=== PATIENT | female | born 1990 | race Caucasian/White ===

== ENCOUNTER 2022-01-03 21:35 | Observation (INO) | payer MEDICAID, SELFPAY ==
[2022-01-03 21:36] VITALS: BP 121/91; PULSE 113; RESP 15; TEMP 36.2; O2SAT 98; BMI 18.7
[2022-01-03 21:59] VITALS: BP 128/72; PULSE 88; RESP 14; TEMP 36.4; O2SAT 99
--- NOTE | 2022-01-03 22:01 | EDS_ITS ---
HPI History of Present Illness Chief Complaint: Substance Abuse Narrative Narrative: Patient presents for detoxification from heroin and has had crack cocaine use. She states she has been through detox previously. She denies other significant past medical history. She had bilateral tubal ligation. She last used earlier today. She denies any active withdrawal symptoms currently except for mildly rapid heart rate. She states that she went through rehab previously, but all they did was talk about God and she states she did not learn anything about coping mechanisms. She denies any suicidal ideation. No other symptoms. She states that she desires detoxification. [facility] Medical History Anxiety Depression Ectopic Mood disorder Restless leg Substance abuse Allergy/AdvReac Type Severity Reaction Status Date / Time sulfamethoxazole Allergy Other Verified 01/03/22 21:36 [From Bactrim] trimethoprim [From Bactrim] Allergy Other Verified 01/03/22 21:36 Social History Smoking Status: Current every day smoker tobacco type: cigarettes ROS ROS ED ROS Narrative Constitutional: No fever, no chills. HEENT: No sore throat. No neck pain. No loss of vision. No rhinorrhea. Cardiovascular: No chest pain. No palpitations. No pedal edema. Respiratory: No cough, no shortness of breath. Abdominal: No abdominal pain. No nausea. No vomiting. Genitourinary: No dysuria. No hematuria. Musculoskeletal: No myalgias. No arthralgias. Neurologic: No headaches. No dizziness. No lightheadedness. Skin: No rash. No change in color. Psychiatric: No depression. No anxiety. EXAM Physical Exam Narrative Exam Narrative: Afebrile. Vital signs noted. HEENT: Normocephalic. Atraumatic. PERRL, EOMI. Neck soft and supple. No point tenderness or step off. Cardiovascular: Regular tachycardia, no murmurs, rubs, or gallops appreciated. Respiratory: No tachypnea. Lungs clear to auscultation bilaterally. Gastrointestinal: Abdomen soft, nontender, with normoactive bowel sounds. No rebound or guarding. Neurological: Awake. Alert. Nonfocal, nonlateralizing. Skin: No rash. Normal color. No pallor. Musculoskeletal: No pedal edema. Full range of motion extremities. Const Vital Signs: 01/03/22 21:36 Temperature 97.2 F L Temperature Source Temporal Pulse Rate 113 H Respiratory Rate 15 Blood Pressure 121/91 H Blood Pressure Mean 101 Pulse Ox 98 Oxygen Delivery Method Room Air MDM MDM MDM Narrative Medical decision making narrative: Screening labs were obtained including CBC, C MP, serum , urine for drugs of abuse, and alcohol level. Patient has already been evaluated by the hospitalist. She will be admitted for detox from polysubstances. She is in stable condition. Discharge Plan Dx/Rx/DC Orders Clinical Impression: Heroin addiction, Crack cocaine use, Desire for detoxification Disposition Disposition: Acute Care Hospital [facility]
--- NOTE | 2022-01-03 22:15 | HP.PCM.HOS_ITS ---
HPI - General General Date of Admission: 01/03/22 Date of Service: 01/03/22 Chief Complaint: Detoxification requested. HPI Narrative The patient is a 31 y/o F w/ PMHx: Anxiety and Depression/Mood disorder, RLS, Tobacco use, Polysubstance abuse (Heroin usually snorted, crack usually snorted, both 1/2 gm each daily) who presents to the [facility] ED on 01/03/22 with history of recurrent onset heroine and crack usage, last usage late afternoon/early evening on day of presentation with recommendation to present for detoxification by 180 with whom patient has been following, unfortunately started using again 10/2021. She notes upon presentation congestion, fatigue and agitation, restless legs but no body aches, nausea or abdominal cramping. Work-up in the ED included T 97.2, HR 113, BP 121/91, RR 15, 98% on RA, pending CBC, CMP, UDS with note of prior BL TL. Patient during evaluation is emotional regarding her usage. She notes she did move out of her house with her matthewe and her two daughters because of her usage back with her parents. She notes that her ficartere continues to be clean x 3 years. COUNTS INCLUDE 234 BEDS AT THE [facility] Medical History Anxiety Depression Ectopic Mood disorder Restless leg Substance abuse Allergy/AdvReac Type Severity Reaction Status Date / Time sulfamethoxazole Allergy Other Verified 01/03/22 21:36 [From Bactrim] trimethoprim [From Bactrim] Allergy Other Verified 01/03/22 21:36 Family History (Updated 01/03/22 @ 22:[address] Davida Merida MD) Father Hypertension Heart disease Myocardial infarction other (Patient denies any marked maternal family history including HD, DM, CA.) Surgical History (Updated 01/03/22 @ 22:[address] Davida Merida MD) History of unilateral salpingectomy Hx of tubal ligation S/P tonsillectomy and adenoidectomy Social History household members: family Smoking Status: Current every day smoker tobacco type: cigarettes Smoking packs per day: 0.5 Smoking cigarettes per day: 10.0 alcohol intake: current alcohol intake frequency: a few times a week substance use type: crack/cocaine and opiates ROS ROS Narrative Admission Review of Systems: CONSTITUTIONAL: No weight loss, fever, chills, + weakness or fatigue. HEENT: Eyes: No visual loss, blurred vision, double vision or yellow sclerae. Ears, Nose, Throat: No hearing loss, sneezing, congestion, runny nose or sore throat. SKIN: No rash or itching, lesions, wounds. CARDIOVASCULAR: No chest pain, chest pressure or chest discomfort, palpitations, edema, orthopnea, syncopal events. RESPIRATORY: No shortness of breath, cough or sputum, wheezing, hemoptysis. GASTROINTESTINAL: No anorexia, nausea, vomiting or diarrhea, abdominal pain, melena, BRBPR. GENITOURINARY: No dysuria, frequency, urgency or retention. NEUROLOGICAL: + Restlessness, agitated, No headache, dizziness, syncope, paralysis, ataxia, numbness or tingling in the extremities, focal weakness, change in bowel or bladder control, seizure. MUSCULOSKELETAL: + muscle, back pain, joint pain or stiffness. HEMATOLOGIC: No anemia, bleeding or bruising. LYMPHATICS: No enlarged nodes. No history of splenectomy. PSYCHIATRIC: + history of depression or anxiety. ENDOCRINOLOGIC: No reports of sweating, cold or heat intolerance. No polyuria or polydipsia. ALLERGIES: No history of asthma, hives, eczema or rhinitis. Vital Signs Vital Signs Vital Signs: 01/03/22 21:36 Temperature 97.2 F L Temperature Source Temporal Pulse Rate 113 H Respiratory Rate 15 Blood Pressure 121/91 H Blood Pressure Mean 101 Pulse Ox 98 Oxygen Delivery Method Room Air Weight Weight: 116 lb Body Mass Index (BMI) 18.7 Physical Exam Narrative Physical Examination: General: Awake, alert, oriented x 3 and cooperative, seated upright in the ED bed, appears agitated, restless. Skin: Normal color, normal turgor, no icterus, no cyanosis except various staged picked regions to extremities, no evidence of any infection/erythema. HEENT: AT/NC, EOMI, PERRLA, mildly dry MM, no carotid bruits or JVD noted. Lungs: Diminished, > bases, moderate effort, no rales, ronchi or wheezing. Heart: Mildly tachycardic with regular rhythm; no gallop, rub audible. Abdomen: Soft, NTTP, ND, normal BS, no HSM. Extremities: No cyanosis, clubbing, or edema. See skin. Neurological: Patient awake, alert, oriented as noted, cognitive function intact; pupils equally reactive to light and accommodation, cranial nerves II- XII grossly normal, moving all 4 extremities, no focal deficits, strength preserved, agitated, restless. Psychiatric: Affect appears agitated, tearful at one point during evaluation, notes history of depression or anxiety. Results Lab / Micro Data Result Diagrams: 01/03/22 22:08 01/03/22 22:08 Assessment & Plan Assessment/Plan (1) Desire for detoxification: (2) Crack cocaine use: (3) Heroin addiction: PLAN: The patient is a 31 y/o F w/ PMHx: Anxiety and Depression/Mood disorder, RLS, Tobacco use, Polysubstance abuse (Heroin usually snorted, crack usually snorted, both 1/2 gm each daily) who presents to the [facility] ED on 01/03/22 with history of recurrent onset heroine and crack usage, last usage late afternoon/early evening on day of presentation with recommendation to present for detoxification by 180. #1. Acute Opiate Impending Withdrawal w/ Detoxification request: Will admit to [facility], routine labs obtained and pending upon evaluation, will initiate and continue on protocol with tapering course of Subutex, as needed tylenol, ibuprofen, bowel regimen, gabapentin, Bentyl, Vistaril, methocarbamol, clonidine, PRN nightly trazodone for insomnia, IV fluids, IV antiemetics. Once patient clinically improved and completion of taper nearing will plan consultation with case management for transition to next level of rehabilitation care. #2. Polysubstance Abuse: Patient currently not candidate for hep C treatment currently as needs to be clean, sober x 6 months, documented attendance NA or AA meetings, counseling and ongoing negative drug screens. Once appropriate GI, ID to initiate. HIV, hepatitis panel to assess for co-infection pending. Also per discussion with patient will obtain CT/NG/Trich evaluation. #3. Anxiety and Depression: Not on regimen, encourage continued evaluation, f ollow-up with counseling. #4. Tobacco Abuse: Encouraged cessation, inpatient consultation per RT, NR if desired. #5. RLS: Notes on chronic gabapentin for RLS but not noted on current medication search, will need clarified. #6. DVT Prophylaxis: Low risk, encourage ambulation. Charges/Coding Visit Charges Inpatient E&M: 46334 Init Hosp L2
[2022-01-03 22:22] LABS: Absolute Lymphocyte Count 2.36 X10^3/uL (0.83-4.51); Absolute Neutrophil Count 2.9 X10^3/uL (2.0-7.7); Basophil# 0.04 X10^3/uL; Basophil% 0.7 % (0-1); Eosinophil# 0.16 X10^3/uL; Eosinophils% 2.8 % (0-5); Hemoglobin 15.7 g/dL (12.0-15.0); Lymphocyte # 2.36 X10^3/ul (0.83-4.51); Lymphocyte % 40.8 % (19-41); Mean Corp Hgb Conc 32.7 g/dL (32-36); Mean Corpuscular Hgb 30.4 pg (27.0-32.0); Mean Corpuscular Volume 92.8 fL (81-99); Mean Platelet Vol. 11.2 fl (6.2-12.0); Monocyte# 0.33 X10^3/uL; Monocyte% 5.7 % (0-10); NRBC Flagged by Analyzer 0 % (0-5); Neutrophil # 2.88 X10^3/uL (2.7-7.7); Neutrophil % 49.8 % (47-70); Platelet Count 275 K/mm3 (150-450); RBC Distribution Width CV 12.8 % (11.6-14.6); RBC Distribution Width SD 44.1 fl (35.1-43.9); Red Blood Count 5.17 M/mm3 (4.2-5.4); White Blood Count 5.8 K/mm3 (4.4-11.0)
[2022-01-03 22:31] LABS: Alcohol, Blood (Medical)-Serum < 3.0 mg/dL
[2022-01-03 22:34] LABS: Amphetamine Urine VISTA NEGATIVE (<1000 ng/mL); Barbiturate Urine VISTA NEGATIVE (< 200 ng/mL); Benzodiazepine Urine VISTA NEGATIVE (< 200 ng/mL); Cocaine Urine VISTA POSITIVE (< 300 ng/mL); Ecstacy Urine VISTA NEGATIVE (< 500 ng/mL); Methadone Urine VISTA NEGATIVE (< 300 ng/mL); PCP Urine VISTA NEGATIVE (< 25 ng/mL); THC Urine VISTA POSITIVE (< 50 ng/mL); Vista UDS pH Range 6
[2022-01-03 22:36] LABS: Internal QC Validated? YES +Cl - CLEAR BKGD; Pregnancy, Serum, hCG Quali. NEGATIVE Negative
[2022-01-03 22:37] LABS: ALB/GLOB Ratio 1.1 RATIO (0.9-2.4); AST(SGOT) 7 U/L (15-37); Alanine Aminotransfer ALT/SGPT 22 U/L (13-56); Albumin, Serum 4.1 g/dL (3.2-5.0); Alkaline Phosphatase 72 U/L (45-117); Anion Gap 4 (5-15); BUN 14 mg/dL (7-18); BUN/Creat Ratio 15.1 RATIO (10-20); Calcium,Total 9.8 mg/dL (8.5-10.1); Chloride 105 mmol/L (98-107); Creatinine, Serum 0.93 mg/dL (0.55-1.02); EST Glomerular Filtration Rate 74 mL/min (>60); Est Glom Filt Rate - Afr Amer 90 mL/min (>60); Estimated Creatinine Clearance 72.14 ml/min; Globulin 3.6 g/dL (2.2-4.2); Glucose 113 mg/dL (74-106); Potassium 3.6 mmol/L (3.5-5.1); Protein, Total 7.7 g/dL (6.4-8.2); Sodium Level 140 mmol/L (136-145)
[2022-01-03 23:07] VITALS: BMI 17.7
[2022-01-03 23:07] LABS: HIV - WCH Non-Reactive (Nonreactive)
[2022-01-03 23:30] VITALS: BP 114/79; PULSE 80; RESP 18; TEMP 36.6; O2SAT 100
[2022-01-04] VITALS (8 sets, daily range): BP systolic 99–119; BP diastolic 57–80; PULSE 59–77; RESP 14–16; TEMP 36.3–36.8; O2SAT 96–100
[2022-01-04] MEDS: Lactated Ringers 1,000 ML 125 ML IV (00:12)
[2022-01-04] MEDS: 0.9% Saline Lock 10 ML Syringe IV (00:13)
[2022-01-04] MEDS: Buprenorphine HCl 2 MG TAB.SUBL SL ×3 (01:03→16:35)
[2022-01-04 01:21] LABS: Chlamydia Trachomatis by PCR Negative (Negative); Neisserai gonorrhoeae by PCR Negative (Negative)
[2022-01-04 01:22] LABS: Probe Check PASS; Sample Adequacy Control PASS; Specimen Processing Control PASS
[2022-01-04] MEDS: hydrOXYzine PAM 25 MG Capsule 50 MG PO ×3 (02:06→21:23)
[2022-01-04] MEDS: traZODone 100 MG Tablet PO (02:07)
--- NOTE | 2022-01-04 02:38 | NURSING ---
Addendum entered by Pooja Andrew 01/04/22 03:02: Substance given to this RN by pt double bagged in biohazard bag. Original Note: Upon arrival to floor, pt belongings secured and pt in gown and underwear and bra. While doing admission, pt was in the bathroom for awhile. This RN opened the door and pt quickly turned around and asked what are you doing?. RNs finished admission, pt expressing that she wants to rest now. Following admission, this RN placed IV and went into bathroom to wash hands. When this RN got paper towels out of the dispenser, a piece of foil fell out. When asked about the foil, pt stated, It accidentally fell out of my bra when I was in the bathroom. RN disposed of foil. Following admission, pt went into bathroom multiple times within a short time and was also observed on camera repeatedly bending over by the cabinet and by the bed. Pt asked if she had anything on her and denied multiple times. Pt was crying and said she wants to go outside and smoke and call her sister and then come back in. This RN explained to pt that according to the [facility] program guidelines that she agreed to, she is not allowed to go and smoke and if she left, she would not be able to come back and get readmitted to the program. This information was confirmed by Dr. Merida as well. This RN spoke with Dr. Merida and she advised to give pt some medication to help her relax and sleep. Pt given meds and agreeable to conform to program rules. A bit later, pt was observed on camera going back to the cabinet and then going back to bed. Pt had an emesis bag from previous complaints of nausea and put something in the bag and went into the bathroom. This RN and another RN went into room and spoke with pt when she came back from the bathroom. Pt threw emesis bag on the floor beside the bed. This RN asked pt if she had anything in the bag and pt said yes. Pt began crying and said that she just wanted to do what she had and then get clean because she wasn't ready to when she came to the hospital. Pt willingly gave emesis bag to this RN and pt reported that she had heroin in there. When asked if she had anything else, pt said she had a life science technical officer. Pt searched her gown and bra and underwear and made sure she didn't have anything else left in it. Pt agreeable to giving everything up to fully be able to participate in the [facility] program. Support given to pt regarding detox and this RN told pt to ask if she needs anything to help her go through the detox. Nursing brew house supervisor made aware of situation.
--- NOTE | 2022-01-04 02:39 | NURSING ---
notified by event staff member of finding drug substance with patient. This RN contacted carpet floor layer apprentice in ER to notify dispatch of drugs. This RN contacted Dr Merida and notified pt confessing to drug substance being heroin. Dr Merida advises that as long as patient consents to no more drugs on self she can stay in program. This RN in addition to Loki Andrew RN, Robert RN talked with patient-she admits she wants to detox, states that she has wanted to use it before she came in but her sister wouldn't let her.
--- NOTE | 2022-01-04 03:00 | NURSING ---
[place] [employer] on floor, bag with substance given to this RN by pt given to Officer Amandeep.
[2022-01-04 04:20] LABS: Probe Check PASS; Sample Adequacy Control PASS; Specimen Processing Control PASS; Trichomonas Vag DNA by PCR Negative (Negative)
[2022-01-04 06:23] LABS: Absolute Lymphocyte Count 1.95 X10^3/uL (0.83-4.51); Absolute Neutrophil Count 3.8 X10^3/uL (2.0-7.7); Basophil# 0.03 X10^3/uL; Basophil% 0.5 % (0-1); Eosinophil# 0.15 X10^3/uL; Eosinophils% 2.4 % (0-5); Lymphocyte # 1.95 X10^3/ul (0.83-4.51); Lymphocyte % 31.1 % (19-41); Mean Corp Hgb Conc 33.3 g/dL (32-36); Mean Corpuscular Hgb 29.7 pg (27.0-32.0); Mean Corpuscular Volume 89.2 fL (81-99); Mean Platelet Vol. 11.4 fl (6.2-12.0); Monocyte# 0.34 X10^3/uL; Monocyte% 5.4 % (0-10); NRBC Flagged by Analyzer 0 % (0-5); Neutrophil % 60.4 % (47-70); Platelet Count 267 K/mm3 (150-450); RBC Distribution Width CV 12.7 % (11.6-14.6); RBC Distribution Width SD 42.2 fl (35.1-43.9); Red Blood Count 4.37 M/mm3 (4.2-5.4); White Blood Count 6.3 K/mm3 (4.4-11.0)
[2022-01-04 06:52] LABS: ALB/GLOB Ratio 1.1 RATIO (0.9-2.4); AST(SGOT) 8 U/L (15-37); Alanine Aminotransfer ALT/SGPT 16 U/L (13-56); Albumin, Serum 3.1 g/dL (3.2-5.0); Alkaline Phosphatase 55 U/L (45-117); Anion Gap 2 (5-15); BUN 14 mg/dL (7-18); BUN/Creat Ratio 20.7 RATIO (10-20); Chloride 109 mmol/L (98-107); Creatinine, Serum 0.68 mg/dL (0.55-1.02); EST Glomerular Filtration Rate 107 mL/min (>60); Est Glom Filt Rate - Afr Amer 129 mL/min (>60); Estimated Creatinine Clearance 93.56 ml/min; Globulin 2.7 g/dL (2.2-4.2); Glucose 91 mg/dL (74-106); Potassium 4.1 mmol/L (3.5-5.1); Protein, Total 5.8 g/dL (6.4-8.2); Sodium Level 141 mmol/L (136-145)
--- NOTE | 2022-01-04 10:26 | CASEMGMT ---
RAHAT called Edgar, Clinical Appeals Rn at [facility] and left her a voice mail letting her know about patient. Kandi Kwok [employer] REDDY
--- NOTE | 2022-01-04 11:20 | ADDICTION ---
Pt was sleeping. She arrived late last night. Will see her tomorrow to complete her documentation and set her up with treatment.
[2022-01-04] MEDS: Ibuprofen 600 MG Tablet PO (12:59)
--- NOTE | 2022-01-04 15:49 | PN.HOSP_ITS ---
Subjective Subjective denies any new compalints. Objective Data Objective Data Vital Signs: Vital Signs Temp Pulse Resp BP Pulse Ox 36.3 C L 59 L 16 99/66 99 01/04/22 11:44 01/04/22 11:44 01/04/22 11:44 01/04/22 11:44 01/04/22 11:44 Oxygen Delivery Method Room Air Weight: 49.9 kg Body Mass Index (BMI) 17.7 Intake & Output: Intake and Output for Last 24 Hours 01/02/22 01/03/22 01/04/22 23:59 23:59 23:59 Intake Total 1000 / 1000 Balance 1000 / 1000 Medical Nutrition Assessment Dietitian: Malnutrition Criteria Met Start: 01/04/22 14:43 Freq: Status: Active Protocol: Document 01/04/22 14:43 RMA (Rec: 01/04/22 14:43 RMA [id number]) Nutrition Malnutrition Evidence of Malnutrition Exists Yes Malnutrition (severe): Social/Behavioral/ Environmental Evidenced By Suboptimal Energy Intake ( Severe),Weight Loss (Severe), Physical Changes (Moderate) Clinical Problem Chronic Disease or Condition Related Malnutrition Etiology Severe protein-calorie malnutrition in the context of social circumstance related to drug abuse and inadequate oral intake Signs/Symptoms as evidenced by ~16% wt loss x past 6-12 months, + NFPA with obvious muscle and fat wasting in the face, clavicle, orbitals and poor oral intake less than 50% meals/PO meeting less than 50% estimated nutrition needs x past 6 months Status Active Problem Recommendation Dietitian Recommendations/Changes Continue regular diet with 3 snacks per day as tolerated. Continue ensure compact w/ medpass 4 times per day. Additional ONS as needed if PO does not improve at meals. Lab / Micro Data Result Diagrams: 01/04/22 05:15 01/04/22 05:15 Labs: Laboratory Results - last 24 hr 01/03/22 22:08: WBC 5.8, RBC 5.17, Hgb 15.7 H, Hct 48.0 H, MCV 92.8, MCH 30.4, MCHC 32.7, RDW Std Deviation 44.1 H, RDW Coeff of Dre 12.8, Plt Count 275, MPV 11.2, Immature Gran % (Auto) 0.200, Neut % (Auto) 49.8, Lymph % (Auto) 40.8, [place] % (Auto) 5.7, Eos % (Auto) 2.8, Baso % (Auto) 0.7, Absolute Neuts (auto) 2.9, Absolute Lymphs (auto) 2.36, Nucleated RBC % 0 01/03/22 22:08: Serum , Qual NEGATIVE 01/03/22 22:08: Sodium 140, Potassium 3.6, Chloride 105, Carbon Dioxide 31.0, Anion Gap 4 L, BUN 14, Creatinine 0.93, Estim Creat Clear Calc 72.14, Est GFR (MDRD) Af Amer 90, Est GFR (MDRD) Non-Af 74, BUN/Creatinine Ratio 15.1, Glucose 113 H, Calcium 9.8, Total Bilirubin 0.40, AST 7 L, ALT 22, Alkaline Phosphatase 72, Total Protein 7.7, Albumin 4.1, Globulin 3.6, Albumin/Globulin Ratio 1.1 01/03/22 22:08: Ethyl Alcohol < 3.0 01/03/22 22:08: HIV 1&2 Antibody Non-Reactive 01/03/22 22:10: Urine Opiates Screen NEGATIVE, Urine Methadone Screen NEGATIVE, Ur Barbiturates Screen NEGATIVE, Ur Phencyclidine Scrn NEGATIVE, Ur Amphetamines Screen NEGATIVE, U Methamphetamin-MDMA NEGATIVE, U Benzodiazepines Scrn NEGATIVE, Urine Cocaine Screen POSITIVE H, U Cannabinoids Screen POSITIVE H, Ur Drug Screen Comment 01/03/22 22:30: Chlam trachomat DNA PCR Negative, N.gonorrhoeae DNA (PCR) Negative, T. vaginalis (PCR) Negative 01/04/22 05:15: WBC 6.3, RBC 4.37, Hgb 13.0, Hct 39.0, MCV 89.2, MCH 29.7, MCHC 33.3, RDW Std Deviation 42.2, RDW Coeff of Dre 12.7, Plt Count 267, MPV 11.4, Immature Gran % (Auto) 0.200, Neut % (Auto) 60.4, Lymph % (Auto) 31.1, [place] % (Auto) 5.4, Eos % (Auto) 2.4, Baso % (Auto) 0.5, Absolute Neuts (auto) 3.8, Absolute Lymphs (auto) 1.95, Nucleated RBC % 0 01/04/22 05:15: Sodium 141, Potassium 4.1, Chloride 109 H, Carbon Dioxide 30.0, Anion Gap 2 L, BUN 14, Creatinine 0.68, Estim Creat Clear Calc 93.56, Est GFR (MDRD) Af Amer 129, Est GFR (MDRD) Non-Af 107, BUN/Creatinine Ratio 20.7 H, Glucose 91, Calcium 9.0, Total Bilirubin 0.40, AST 8 L, ALT 16, Alkaline Phosphatase 55, Total Protein 5.8 L, Albumin 3.1 L, Globulin 2.7, Albumin/Globulin Ratio 1.1 Physical Exam Const alert and no apparent distress HEENT head/scalp atraumatic Head and Scalp: normocephalic Assessment & Plan Assessment/Plan (1) Heroin addiction: (2) Crack cocaine use: PLAN: 1. Acute opiate withdrawal Undergone ORIF and taper Continue with other agents to help with other somatic complaints associated with acute opiate withdrawal Charges/Coding Visit Charges Inpatient E&M: 01450 Subs Hosp L1
[2022-01-05] MEDS: Buprenorphine HCl 2 MG TAB.SUBL SL ×3 (00:03→17:38)
[2022-01-05 03:20] VITALS: BP 114/81; PULSE 81; RESP 12; TEMP 36.7; O2SAT 97
[2022-01-05 09:05] VITALS: O2SAT 94
[2022-01-05 09:20] VITALS: BP 110/85; PULSE 80; RESP 16; TEMP 36.9; O2SAT 97
--- NOTE | 2022-01-05 14:26 | ADDICTION ---
This loan underwriter met with PT to conduct ASAM, MSE, AUDIT, DUDIT assessments and to plan for d/c. PT A+Ox4 and participated actively. All assessments completed and placed in PT's chart. PT plans to f/u with [facility] at [facility] for residential treatment and follow-up counseling services. [facility] will provide transportation post d/c from [facility]. [facility] will pick her up at 10am. They will call the nurses station when they arrive.
--- NOTE | 2022-01-05 14:29 | PCM.PN.HOSP ---
Subjective Subjective Feels ok. Objective Data Objective Data Vital Signs: Vital Signs Temp Pulse Resp BP Pulse Ox 36.9 C 80 16 110/85 H 97 01/05/22 09:20 01/05/22 09:20 01/05/22 09:20 01/05/22 09:20 01/05/22 09:20 Oxygen Delivery Method Room Air Weight: 49.9 kg Body Mass Index (BMI) 17.7 Intake & Output: Intake and Output for Last 24 Hours 01/03/22 01/04/22 01/05/22 23:59 23:59 23:59 Intake Total 1240 / 1720 680 / 680 Balance 1240 / 1720 680 / 680 Medical Nutrition Assessment Dietitian: Malnutrition Criteria Met Start: 01/04/22 14:43 Freq: Status: Active Protocol: Document 01/04/22 14:43 RMA (Rec: 01/04/22 14:43 RMA [id number]) Nutrition Malnutrition Evidence of Malnutrition Exists Yes Malnutrition (severe): Social/Behavioral/ Environmental Evidenced By Suboptimal Energy Intake ( Severe),Weight Loss (Severe), Physical Changes (Moderate) Clinical Problem Chronic Disease or Condition Related Malnutrition Etiology Severe protein-calorie malnutrition in the context of social circumstance related to drug abuse and inadequate oral intake Signs/Symptoms as evidenced by ~16% wt loss x past 6-12 months, + NFPA with obvious muscle and fat wasting in the face, clavicle, orbitals and poor oral intake less than 50% meals/PO meeting less than 50% estimated nutrition needs x past 6 months Status Active Problem Recommendation Dietitian Recommendations/Changes Continue regular diet with 3 snacks per day as tolerated. Continue ensure compact w/ medpass 4 times per day. Additional ONS as needed if PO does not improve at meals. Lab / Micro Data Result Diagrams: 01/04/22 05:15 01/04/22 05:15 Physical Exam Const alert Neuro Sensorium / Orientation: awake and alert Psych affect normal Assessment & Plan Assessment/Plan (1) Heroin addiction: (2) Crack cocaine use: PLAN: 1. Acute opiate withdrawal Undergone ORIF and taper Continue with other agents to help with other somatic complaints associated with acute opiate withdrawal Charges/Coding Visit Charges Inpatient E&M: 40759 [facility] Hosp L1
[2022-01-05 15:20] VITALS: BP 113/80; PULSE 77; RESP 16; TEMP 36.7; O2SAT 98
--- NOTE | 2022-01-05 15:20 | NURSING ---
This nurse called into take over care at 0815.
[2022-01-05] MEDS: hydrOXYzine PAM 25 MG Capsule 50 MG PO (20:11)
[2022-01-05 21:52] VITALS: BP 118/81; PULSE 108; RESP 20; TEMP 36.9; O2SAT 98
[2022-01-06] MEDS: Buprenorphine HCl 2 MG TAB.SUBL SL (00:03)
[2022-01-06 02:09] LABS: Chlamydia Trachomatis by PCR Negative (Negative); Neisserai gonorrhoeae by PCR Negative (Negative); Probe Check PASS; Sample Adequacy Control PASS; Specimen Processing Control PASS
[2022-01-06 03:15] VITALS: BP 104/74; PULSE 97; RESP 16; TEMP 36.7; O2SAT 98
[2022-01-06 08:45] VITALS: BP 100/69; PULSE 92; RESP 16; TEMP 36.6; O2SAT 98
[2022-01-06 08:51] VITALS: O2SAT 98
--- NOTE | 2022-01-06 09:48 | DCINST_ITS ---
Discharge Instructions Diet Discharge Diet: No restrictions Dressing / Incision Call your doctor if you observe: Fever of 101 or Higher Follow Up Care Test Results: Test results from this visit will be discussed in further detail at your follow-up appointment, if applicable. Discharge Plan Admission Admit Date/Time: 01/03/22 22:16 Primary Reason for Your Visit: opiate withdrawal Attending Provider: Jimy Walker Discharge Orders/Prescriptions Referrals / Follow Up: ISAURO CALDERA [[facility]] [facility] Doctor,Out of [NON-STAFF] - Disposition Disposition (needs filled in before D/C Order can be placed): Home, Self Care
--- NOTE | 2022-01-06 09:49 | DS.PCM_ITS ---
Providers Date of Admission: 01/03/22 Primary Care Physician: ISAURO CALDERA Reason For Visit: DETOX OPIATES Diagnosis Discharge Diagnosis (1) Heroin addiction: Status: Acute Code(s): F11.20 - Opioid dependence, uncomplicated (2) Crack cocaine use: Status: Acute Code(s): F14.90 - Cocaine use, unspecified, uncomplicated Hospital Course Operations None Procedures None Summary of Care Provided Minutes Spent on Discharge: 26 Hospital Course: 29-year-old female presents with opiate withdrawal. On top of that patient also uses crack cocaine. Patient was put on buprenorphine taper and her hospitalization was uncomplicated. Patient seen by addiction medicine and the plan is for patient to go to the [address] [place] [address] program today. Physical Exam Const alert and no apparent distress Neuro Sensorium / Orientation: awake and alert Medical Records Data Medical Nutrition Assessment Dietitian: Malnutrition Criteria Met Start: 01/04/22 14:43 Freq: Status: Active Protocol: Document 01/04/22 14:43 RMA (Rec: 01/04/22 14:43 RMA [id number]) Nutrition Malnutrition Evidence of Malnutrition Exists Yes Malnutrition (severe): Social/Behavioral/ Environmental Evidenced By Suboptimal Energy Intake ( Severe),Weight Loss (Severe), Physical Changes (Moderate) Clinical Problem Chronic Disease or Condition Related Malnutrition Etiology Severe protein-calorie malnutrition in the context of social circumstance related to drug abuse and inadequate oral intake Signs/Symptoms as evidenced by ~16% wt loss x past 6-12 months, + NFPA with obvious muscle and fat wasting in the face, clavicle, orbitals and poor oral intake less than 50% meals/PO meeting less than 50% estimated nutrition needs x past 6 months Status Active Problem Recommendation Dietitian Recommendations/Changes Continue regular diet with 3 snacks per day as tolerated. Continue ensure compact w/ medpass 4 times per day. Additional ONS as needed if PO does not improve at meals. Weight / BMI Weight Weight: 49.9 kg Body Mass Index (BMI) 17.7 ABG / Lab / Microbiology Data Result Diagrams: 01/04/22 05:15 01/04/22 05:15 Laboratory: Laboratory Results - last 24 hr 01/05/22 19:40: Chlam trachomat DNA PCR Negative, N.gonorrhoeae DNA (PCR) Negative D/C Instructions Discharge Diet: No restrictions Call your doctor if you observe: Fever of 101 or Higher Meaningful Use Info Meaningful Use Diagnoses (Choose all that apply): None applicable Discharge Plan Admission Admit Date/Time: 01/03/22 22:16 Primary Reason for Your Visit: opiate withdrawal Attending Provider: Jimy Walker Discharge Orders/Prescriptions Referrals / Follow Up: ISAURO CALDERA [[facility]] [facility] Doctor,Out of [NON-STAFF] - Disposition Disposition (needs filled in before D/C Order can be placed): Home, Self Care Charges/Coding Visit Charges Inpatient E&M: 39820 Disch Hosp
== END 2022-01-06 10:40 | disposition home or self-care (01) ==
LOC: ED 22:15 → PCU 22:24
PROVIDERS: Admitting Provider Family Medicine; Emergency Provider Emergency Medicine
DX: F11.23 Opioid dependence with withdrawal (principal); F14.10 Cocaine abuse, uncomplicated; F17.210 Nicotine dependence, cigarettes, uncomplicated; G25.81 Restless legs syndrome
CPT/HCPCS: 96360; 96361; G0378 ×2; 36415; 80053; 80307; 82077; 84703; 85025; 86703; 86704; 86705; 86706; 86707; 86803; 87340; 87350; 87491; 87591; 87661; 97802; 99218; 99283; H0012; J7120; A4216